=== PATIENT | female | born 1965 | race Caucasian/White ===

== ENCOUNTER 2019-12-12 12:40 | Inpatient (IN) ==
[2019-12-12] MEDS ORDERED: NS 0.9% 1000 ml BAG 1,000 ML IV ONE (13:49)
[2019-12-12] MEDS ORDERED: Ondansetron 4 mg VIAL 2 MG/ML 2 ml VIAL IV ONE (13:49)
[2019-12-12 14:18] LABS: Hematocrit 50 % (35-47); Hemoglobin 16.5 g/dL (12.0-16.0); Mean Corpuscular HGB Conc 33 g/dL (31-36); Mean Corpuscular Hemoglobin 29 pg (27-31); Mean Corpuscular Volume 87 fL (80-97); Mean Platelet Volume 11.5 fL (7.4-10.4); Platelet Count 101 10^3/uL (150-450); Red Cell Distribution Width 14 % (10-15); White Blood Count 23.7 10^3/uL (3.5-10.8)
[2019-12-12 14:36] LABS: Albumin 4.5 g/dL (3.2-5.2); Albumin/Globulin Ratio 1.5 (1-3); BUN/Creatinine Ratio 14.3 (8-20); C Reactive Protein 144.06 mg/L (<8.01); Calcium 9.9 mg/dL (8.6-10.3); EGFR African American 85.8 (>60); EGFR Non-African American 70.9 (>60); Globulin 3.1 g/dL (2-4); Potassium 3.7 mmol/L (3.5-5.0); Total Protein 7.6 g/dL (6.4-8.9)
[2019-12-12] MEDS ORDERED: Iohexol 300 (CONTRAST) 10 ML SDV IV ONE (14:53)
[2019-12-12 15:08] LABS: ABS Basophils 0.1 10^3/ul (0-0.2); ABS Lymphocytes 1.7 10^3/ul (1.0-4.8); ABS Monocytes 2.1 10^3/ul (0-0.8); ABS Neutrophils 19.8 10^3/ul (1.5-7.7); Lymphocyte % 7.1 %
[2019-12-12] MEDS ORDERED: Piperacillin/Tazobac ADVAN 3.375 GM in NS 0.9% 100 ml BAG 100 ML IV ONE (15:13)
[2019-12-12] MEDS ORDERED: Lactated Ringers 1000 ml BAG 1,000 ML IV SCH (16:00)
[2019-12-12] MEDS ORDERED: fentaNYL 250 mcg/5 ml 50 MCG/ML 5 ml VIAL (250 MCG) ONE (18:01)
[2019-12-12] MEDS ORDERED: Rocuronium 50 mg VIAL 10 mg/ml 5 ml VIAL (50 mg) ONE ×2 (18:01)
[2019-12-12] MEDS ORDERED: Midazolam 2 mg/2 ml VIAL 1 mg/ml 2 ml VIAL (2 mg) ONE (18:01)
[2019-12-12] MEDS ORDERED: Propofol 10 MG/ML 20 ML BTL ONE (18:02)
[2019-12-12] MEDS ORDERED: Bupivacaine 0.25% SDV 30 ML ONE (18:17)
[2019-12-12] MEDS ORDERED: Naloxone 0.4 mg VIAL 0.4 mg/ml 1 ml VIAL IV PRN (18:18)
[2019-12-12] MEDS ORDERED: Ondansetron 4 mg VIAL 2 MG/ML 2 ml VIAL IV PRN ×2 (18:18→20:18)
[2019-12-12] MEDS ORDERED: fentaNYL 100 mcg/2 ml 50 MCG/ML VIAL IV PRN (18:18)
[2019-12-12] MEDS ORDERED: HYDROmorphone 1 MG/1 ML SYRINGE IV PRN (18:18)
[2019-12-12] MEDS ORDERED: EPHEDrine (Pressors) 50 MG/ML VIAL ONE (18:51)
[2019-12-12] MEDS ORDERED: Dexamethasone IV 4 MG/ML VIAL 1 ml VIAL ONE (18:52)
[2019-12-12] MEDS ORDERED: Phenylephrine 40 mcg/mL 10mL (400mcg) SYRINGE ONE (18:57)
[2019-12-12] MEDS ORDERED: HYDROmorphone 1 MG/1 ML SYRINGE ONE (19:03)
[2019-12-12] MEDS ORDERED: Sugammadex 500 MG/5 ML 5 ml VIAL IV PUSH ONE (19:47)
[2019-12-12] MEDS ORDERED: Ondansetron 4 mg VIAL 2 MG/ML 2 ml VIAL ONE (19:47)
[2019-12-12] MEDS ORDERED: Labetalol IV 5 MG/ML 20 ml VIAL IV PUSH PRN (20:34)
[2019-12-12] MEDS ORDERED: Labetalol IV 5 MG/ML 20 ml VIAL ONE (20:40)
[2019-12-12] MEDS: D5W 1/2 NS 1000 ml BAG 1,000 ML IV SCH (21:48)
[2019-12-12] MEDS: Piperacillin/Tazobactam VIAL 3.375 GM in NS 0.9% 100 ml BAG 100 ML IVPB SCH (22:13)
[2019-12-13 05:46] LABS: BUN/Creatinine Ratio 17.6 (8-20); Calcium 7.9 mg/dL (8.6-10.3); EGFR African American 109.5 (>60); EGFR Non-African American 90.5 (>60); Magnesium 1.3 mg/dL (1.9-2.7); Potassium 3.3 mmol/L (3.5-5.0)
[2019-12-13] MEDS: Piperacillin/Tazobactam VIAL 3.375 GM in NS 0.9% 100 ml BAG 100 ML IVPB SCH ×3 (05:54→21:59)
[2019-12-13] MEDS: HYDROmorphone 1 MG/1 ML SYRINGE IV PRN ×3 (05:59→21:59)
[2019-12-13 06:23] LABS: ABS Lymphocytes 0.9 10^3/ul (1.0-4.8); ABS Monocytes 0.8 10^3/ul (0-0.8); ABS Neutrophils 11.6 10^3/ul (1.5-7.7); Hematocrit 40 % (35-47); Hemoglobin 13.1 g/dL (12.0-16.0); Lymphocyte % 6.7 %; Mean Corpuscular HGB Conc 33 g/dL (31-36); Mean Corpuscular Hemoglobin 28 pg (27-31); Mean Corpuscular Volume 86 fL (80-97); Mean Platelet Volume 11.4 fL (7.4-10.4); Platelet Count 74 10^3/uL (150-450); Red Blood Count 4.61 10^6 /uL (3.70-4.87); Red Cell Distribution Width 15 % (10-15); White Blood Count 13.3 10^3/uL (3.5-10.8)
[2019-12-13] MEDS: Enoxaparin 40 MG/0.4 ML SYR SUBCUT SCH (08:29)
[2019-12-13] MEDS ORDERED: Magnesium Sulfate 2 gm BAG 2 GM/50 ML BAG IVPB ONE ×2 (10:00→12:30)
[2019-12-13] MEDS: Potassium Chlor 20 meq TAB.ER PO SCH ×2 (10:27→22:00)
[2019-12-13] MEDS: KCL 10 MEQ/50 ML IVPREMIX 10 MEQ/50 ML BAG IV SCH ×2 (10:28→14:17)
[2019-12-13] MEDS: D5W 1/2 NS 1000 ml BAG 1,000 ML IV SCH ×2 (12:19→22:06)
[2019-12-14] MEDS: Piperacillin/Tazobactam VIAL 3.375 GM in NS 0.9% 100 ml BAG 100 ML IVPB SCH ×3 (06:07→22:10)
[2019-12-14] MEDS: D5W 1/2 NS 1000 ml BAG 1,000 ML IV SCH (08:21)
[2019-12-14] MEDS: Enoxaparin 40 MG/0.4 ML SYR SUBCUT SCH (08:23)
[2019-12-14 10:39] LABS: BUN/Creatinine Ratio 20.6 (8-20); Calcium 8.5 mg/dL (8.6-10.3); EGFR African American 119.6 (>60); EGFR Non-African American 98.8 (>60); Magnesium 1.8 mg/dL (1.9-2.7); Potassium 3.5 mmol/L (3.5-5.0)
[2019-12-14 10:54] LABS: ABS Eosinophils 0.1 10^3/ul (0-0.6); ABS Lymphocytes 0.9 10^3/ul (1.0-4.8); ABS Monocytes 0.6 10^3/ul (0-0.8); ABS Neutrophils 10.8 10^3/ul (1.5-7.7); Eosinophil % 0.4 %; Hematocrit 39 % (35-47); Hemoglobin 13.3 g/dL (12.0-16.0); Mean Corpuscular HGB Conc 34 g/dL (31-36); Mean Corpuscular Hemoglobin 30 pg (27-31); Mean Corpuscular Volume 87 fL (80-97); Mean Platelet Volume 11.8 fL (7.4-10.4); Platelet Count 80 10^3/uL (150-450); Red Blood Count 4.49 10^6 /uL (3.70-4.87); Red Cell Distribution Width 14 % (10-15); White Blood Count 12.4 10^3/uL (3.5-10.8)
[2019-12-14] MEDS ORDERED: Potassium Chlor 20 meq TAB.ER PO ONE (11:33)
[2019-12-14] MEDS ORDERED: Senna TAB 8.6 mg TAB PO PRN (18:02)
[2019-12-15] MEDS: Piperacillin/Tazobactam VIAL 3.375 GM in NS 0.9% 100 ml BAG 100 ML IVPB SCH (05:29)
[2019-12-15 07:43] VITALS: BP 170/88
[2019-12-15] MEDS: Enoxaparin 40 MG/0.4 ML SYR SUBCUT SCH (07:44)
== END 2019-12-15 12:30 | disposition home or self-care (01) | DRG 225 ==
LOC: ED 12:40 → SSU 18:28
PROVIDERS: ADMIT Surgery Surgical Critical Care; ATTEND Surgery Surgical Critical Care